=== PATIENT | male | born 1965 | race Caucasian/White ===

== ENCOUNTER 2017-10-09 08:09 | Emergency (ER) | payer MEDICAID ==
[2017-10-09] MEDS: FLUORESCEIN STRIP BOTH EYES (10:06)
[2017-10-09] MEDS: PROPARACAINE 0.5% 15 ML OPH BOTH EYES (10:15)
== END 2017-10-09 11:06 | disposition home or self-care (01) ==
LOC: FTE 08:09
DX: H10.9 Unspecified conjunctivitis (principal); J32.9 Chronic sinusitis, unspecified
CPT/HCPCS: 99284; Z7502

== ENCOUNTER 2019-06-11 18:35 | Inpatient (IN) | payer MEDICAID, OTHER ==
[~2019-06-11 18:35] MED LIST: ETOMIDATE 20 MG INJ
[2019-06-11 19:03] LABS: ADD MAN DIFF? NO
[2019-06-11] MEDS: CEFEPIME 2GM/50 ML (PMX) 50 ML IVPB (19:04)
[2019-06-11] MEDS: ACETAMINOPHEN 325 MG TAB PO (19:04)
[2019-06-11] MEDS: SODIUM CHLORIDE 0.9% 1L BAG IV* (19:04)
[2019-06-11 19:07] LABS: BASOPHILS % 0.3 % (0.0-2.0); EOSINOPHILS % 0.2 % (0.0-7.0); HEMOGLOBIN 14.2 g/dl (14.0-18.0); LYMPHOCYTES % 7.6 % (15.0-51.0); MEAN CORPUSCULAR HEMOGLOBIN 32.1 pg (29.0-33.0); MEAN CORPUSCULAR HGB CONC 35.5 g/dl (32.0-37.0); MEAN CORPUSCULAR VOLUME 90.3 fl (82.0-101.0); MEAN PLATELET VOLUME 10.7 fl (7.4-10.4); MONOCYTE # 0.9 10^3/ul (0.3-0.9); MONOCYTES % 6.5 % (0.0-11.0); NEUTROPHILS % 84.4 % (39.0-77.0); PLATELET COUNT 202 10^3/UL (140-415); RED BLOOD COUNT 4.43 10^6/ul (4.70-6.10); RED CELL DISTRIBUTION WIDTH 11.9 % (11.5-14.5)
[2019-06-11 19:07] LABS: WHITE BLOOD COUNT 13.1 10^3/ul (4.8-10.8)
[2019-06-11 19:15] LABS: ADD UMIC YES; UR ASCORBIC ACID NEGATIVE (NEGATIVE); UR BACTERIA FEW /HPF (NONE SEEN); UR BILIRUBIN (Dip) NEGATIVE (NEGATIVE); UR BLOOD (Dip) 2+ mg/dL (NEGATIVE); UR CLARITY CLEAR (CLEAR); UR COLOR YELLOW (YELLOW); UR GLUCOSE (Dip) NEGATIVE (NEGATIVE); UR KETONES (Dip) NEGATIVE (NEGATIVE); UR LEUKOCYTE ESTERASE (Dip) TRACE Leu/ul (NEGATIVE); UR NITRITE (Dip) NEGATIVE (NEGATIVE); UR RBC 2 /HPF (0-5); UR SPECIFIC GRAVITY (Dip) 1.014 (1.003-1.030); UR TOTAL PROTEIN (Dip) 1+ mg/dl (NEGATIVE); UR UROBILINOGEN (Dip) NEGATIVE (NEGATIVE); UR WBC 29 /HPF (0-5)
[2019-06-11 19:26] LABS: INR 1.04; PROTIME 13.7 Sec (11.9-14.9); PT RATIO 1.1
[2019-06-11 19:27] LABS: PARTIAL THROMBOPLASTIN TIME 31.2 Sec (23.0-35.0)
[2019-06-11 19:37] LABS: ALANINE AMINOTRANSFERASE 50 IU/L (13-69); ALBUMIN 4.4 g/dl (3.3-4.9); ALBUMIN/GLOBULIN RATIO 1.25; ALKALINE PHOSPHATASE 95 IU/L (42-121); ANION GAP 12 (5-13); ASPARTATE AMINO TRANSFERASE 40 IU/L (15-46); BILIRUBIN,INDIRECT 1.9 mg/dl (0-1.1); BILIRUBIN,TOTAL 1.9 mg/dl (0.2-1.3); BLOOD UREA NITROGEN 12 mg/dl (7-20); CALCIUM 8.7 mg/dl (8.4-10.2); CARBON DIOXIDE 20 mmol/L (21-31); CHLORIDE 102 mmol/L (97-110); CREATININE 0.94 mg/dl (0.61-1.24); Estimated GFR > 60 mL/min (>60); GLUCOSE 137 mg/dl (70-220); POTASSIUM 3.7 mmol/L (3.5-5.1); SODIUM 134 mmol/L (135-144); TOTAL PROTEIN 7.9 g/dl (6.1-8.1)
[2019-06-11 19:48] LABS: TROPONIN-I < 0.012 ng/ml (0.000-0.120)
[2019-06-11] MEDS ORDERED: ACETAMINOPHEN 325 MG TAB PO (21:30)
[2019-06-11] MEDS ORDERED: ONDANSETRON 4 MG INJ IV ×2 (21:30→22:30)
[2019-06-11] MEDS ORDERED: NACL 0.9% 3 ML SYG IV (22:30)
[2019-06-11] MEDS ORDERED: morphine 2 MG INJ IV (22:30)
[2019-06-11] MEDS: CEFTRIAXONE 1 GM/50 ML (PMX) 50 ML IVPB (23:13)
[2019-06-11] MEDS: SOD CHLORIDE 0.9% 1,000 ML IV (23:13)
[2019-06-11] MEDS: TAMSULOSIN (SR) 0.4 MG CAP PO (23:23)
[2019-06-11 23:46] LABS: LACTIC ACID 0.7 mmol/L (0.5-2.0)
[2019-06-11] MEDS: ZOLPIDEM 5 MG TAB PO (23:54)
[2019-06-11] MEDS: HYDROCODONE/APAP (5/325) TAB PO (23:54)
[2019-06-12] MEDS: SOD CHLORIDE 0.9% 1,000 ML IV ×3 (05:13→20:36)
[2019-06-12] MEDS: ACETAMINOPHEN 325 MG TAB PO (05:17)
[2019-06-12 05:44] LABS: ADD MAN DIFF? NO
[2019-06-12 05:56] LABS: BASOPHILS % 0.3 % (0.0-2.0); EOSINOPHILS # 0.1 10^3/ul (0.0-0.5); EOSINOPHILS % 0.7 % (0.0-7.0); HEMATOCRIT 39.2 % (42.0-52.0); HEMOGLOBIN 13.5 g/dl (14.0-18.0); LYMPHOCYTES # 1.1 10^3/ul (0.8-2.9); LYMPHOCYTES % 10.2 % (15.0-51.0); MEAN CORPUSCULAR HEMOGLOBIN 31.4 pg (29.0-33.0); MEAN CORPUSCULAR HGB CONC 34.4 g/dl (32.0-37.0); MEAN CORPUSCULAR VOLUME 91.2 fl (82.0-101.0); MEAN PLATELET VOLUME 10.8 fl (7.4-10.4); MONOCYTE # 0.9 10^3/ul (0.3-0.9); NEUTROPHIL # 8.8 10^3/ul (1.6-7.5); NEUTROPHILS % 79.8 % (39.0-77.0); PLATELET COUNT 180 10^3/UL (140-415); RED CELL DISTRIBUTION WIDTH 12.1 % (11.5-14.5)
[2019-06-12 05:56] LABS: WHITE BLOOD COUNT 11.1 10^3/ul (4.8-10.8)
[2019-06-12 06:06] LABS: HEMOGLOBIN A1C 5.1 % (0-5.9)
[2019-06-12 06:08] LABS: LACTIC ACID 1.2 mmol/L (0.5-2.0)
[2019-06-12 06:12] LABS: ANION GAP 8 (5-13); BLOOD UREA NITROGEN 10 mg/dl (7-20); CALCIUM 8.4 mg/dl (8.4-10.2); CARBON DIOXIDE 25 mmol/L (21-31); CHLORIDE 104 mmol/L (97-110); CREATININE 0.79 mg/dl (0.61-1.24); Estimated GFR > 60 mL/min (>60); GLUCOSE 106 mg/dl (70-220); MAGNESIUM 1.9 mg/dl (1.7-2.5); PHOSPHORUS 2.7 mg/dl (2.5-4.9); POTASSIUM 3.5 mmol/L (3.5-5.1); SODIUM 137 mmol/L (135-144)
[2019-06-12 06:37] LABS: TROPONIN-I < 0.012 ng/ml (0.000-0.120)
[2019-06-12] MEDS ORDERED: SULFACETAMIDE 10% BOTH EYES (09:00)
[2019-06-12] MEDS: PHENAZOPYRIDINE 100 MG TAB PO ×2 (18:47→20:36)
[2019-06-12] MEDS: TAMSULOSIN (SR) 0.4 MG CAP PO (20:36)
[2019-06-12] MEDS: CEFTRIAXONE 1 GM/50 ML (PMX) 50 ML IVPB (22:56)
[2019-06-12] MEDS: ZOLPIDEM 5 MG TAB PO (23:06)
[2019-06-13] MEDS: SOD CHLORIDE 0.9% 1,000 ML IV ×3 (04:20→21:59)
[2019-06-13] MEDS: PHENAZOPYRIDINE 100 MG TAB PO ×3 (08:53→21:56)
[2019-06-13] MEDS: FINASTERIDE 5 MG TAB PO (08:53)
[2019-06-13] MEDS: ZOLPIDEM 5 MG TAB PO (21:56)
[2019-06-13] MEDS: CEFTRIAXONE 1 GM/50 ML (PMX) 50 ML IVPB (21:56)
[2019-06-13] MEDS: TAMSULOSIN (SR) 0.4 MG CAP PO (21:56)
[2019-06-14 05:06] LABS: ADD MAN DIFF? NO
[2019-06-14 05:07] LABS: BASOPHILS % 0.6 % (0.0-2.0); EOSINOPHILS # 0.3 10^3/ul (0.0-0.5); EOSINOPHILS % 4.7 % (0.0-7.0); HEMATOCRIT 40.5 % (42.0-52.0); HEMOGLOBIN 13.9 g/dl (14.0-18.0); LYMPHOCYTES # 1.5 10^3/ul (0.8-2.9); LYMPHOCYTES % 21.6 % (15.0-51.0); MEAN CORPUSCULAR HEMOGLOBIN 31.2 pg (29.0-33.0); MEAN CORPUSCULAR HGB CONC 34.3 g/dl (32.0-37.0); MEAN CORPUSCULAR VOLUME 90.8 fl (82.0-101.0); MEAN PLATELET VOLUME 10.7 fl (7.4-10.4); MONOCYTE # 0.8 10^3/ul (0.3-0.9); MONOCYTES % 11.5 % (0.0-11.0); NEUTROPHIL # 4.3 10^3/ul (1.6-7.5); NEUTROPHILS % 60.3 % (39.0-77.0); PLATELET COUNT 233 10^3/UL (140-415); RED BLOOD COUNT 4.46 10^6/ul (4.70-6.10)
[2019-06-14 05:07] LABS: WHITE BLOOD COUNT 7.1 10^3/ul (4.8-10.8)
[2019-06-14 05:37] LABS: ANION GAP 7 (5-13); BLOOD UREA NITROGEN 7 mg/dl (7-20); CALCIUM 8.8 mg/dl (8.4-10.2); CARBON DIOXIDE 26 mmol/L (21-31); CHLORIDE 106 mmol/L (97-110); CREATININE 0.75 mg/dl (0.61-1.24); Estimated GFR > 60 mL/min (>60); GLUCOSE 108 mg/dl (70-220); POTASSIUM 3.4 mmol/L (3.5-5.1); SODIUM 139 mmol/L (135-144)
[2019-06-14] MEDS: SOD CHLORIDE 0.9% 1,000 ML IV ×2 (06:02→14:00)
[2019-06-14] MEDS: LIDOCAINE 2% 20 ML UROJET SYRINGE MM (08:37)
[2019-06-14] MEDS: PHENAZOPYRIDINE 100 MG TAB PO ×2 (08:38→13:30)
[2019-06-14] MEDS: FINASTERIDE 5 MG TAB PO (08:38)
[2019-06-14] MEDS: POTASSIUM CHLORIDE (SR) 20 MEQ TAB PO (11:25)
== END 2019-06-14 16:50 | disposition home or self-care (01) | DRG 872 ==
LOC: ICU 06-12 05:04 → E/R 18:35 → MS1 06-12 18:00 → PP2 21:17
DX: A41.9 Sepsis, unspecified organism (principal); N13.6 Pyonephrosis; E87.1 Hypo-osmolality and hyponatremia; N41.9 Inflammatory disease of prostate, unspecified; R33.9 Retention of urine, unspecified
CPT/HCPCS: 36415; 71045; 73221; 76536; 76775; 80048; 80053; 81001; 82962; 83036; 83605; 83735; 84100; 84484; 85025; 85610; 85730; 87040-91; 87086; 93005; 96374; 97167; 99285-25